=== PATIENT | male | born 1985 | race Caucasian/White ===

== ENCOUNTER 2017-12-09 13:17 | Emergency (ER) | payer MEDICAID ==
[~2017-12-09] VITALS: Ht 165.1 cm; Wt 70.3 kg
[2017-12-09 13:22] VITALS: Ht 165.1 cm; Wt 70.3 kg
[2017-12-09 15:00] VITALS: BP 155/68
== END 2017-12-09 15:23 | disposition home or self-care (01) ==
LOC: ED 13:17
DX: H92.01 Otalgia, right ear (principal); R05 Cough; R09.89 Other specified symptoms and signs involving the circulatory and respiratory systems